=== PATIENT | female | born 1985 | race Two or more races ===

== ENCOUNTER 2021-04-01 07:23 | Observation (INO) | payer SELFPAY ==
[~2021-04-01] VITALS: Ht 162.6 cm; Wt 79.4 kg
[2021-04-01 08:02] LABS: BILIRUBIN,URINE NEGATIVE (NEG); CLARITY,URINE CLEAR; COLOR,URINE YELLOW; NITRITE,URINE NEGATIVE (NEG); PROTEIN,URINE NEGATIVE (NEG-TRACE); UROBILINOGEN,URINE 0.2 mg/dL (0.2 mg/dL)
[2021-04-01 08:13] LABS: BARBITURATES NEG (NEG); BENZODIAZEPINES NEG (NEG); CANNABINOIDS NEG (NEG); COCAINE NEG (NEG); METHADONE NEG (NEG); OPIATES NEG (NEG); PHENCYCLIDINE NEG (NEG)
[2021-04-01 08:15] LABS: BACTERIA,URINE FEW /HPF (0-FEW); RBC,URINE 0 /HPF (0-2)
[2021-04-01 08:23] LABS: AMPHETAMINE/METHAMPHETAMINE NEG (NEG)
[2021-04-01 08:24] LABS: BASO # 0.1 x10^3/uL (0.0-0.2); BASO % 1 % (0-3); EOS # 0.4 x10^3/uL (0.0-0.7); EOS % 5 % (0-3); HEMOGLOBIN 13.2 g/dL (12.0-15.5); LYMPH # 1.9 x10^3/uL (1.0-4.8); LYMPH % 22 % (24-48); MEAN CORPUSCULAR HEMOGLOBIN 28 pg (25-35); MEAN CORPUSCULAR HGB CONC 34 g/dL (31-37); MEAN CORPUSCULAR VOLUME 84 fL (79-100); MONO # 0.4 x10^3/uL (0.0-1.1); MONO % 5 % (0-9); NEUT # 5.7 x10^3/uL (1.8-7.7); NEUT % 67 % (31-73); PLATELET COUNT 267 x10^3/uL (140-400); RED BLOOD COUNT 4.64 x10^6/uL (3.50-5.40); RED CELL DISTRIBUTION WIDTH 14.2 % (11.5-14.5); WHITE BLOOD COUNT 8.5 x10^3/uL (4.0-11.0)
[2021-04-01 08:38] LABS: CREATININE 0.7 mg/dL (0.6-1.0); GFR 94.7; POTASSIUM 3.7 mmol/L (3.5-5.1)
[2021-04-01 08:44] LABS: ALBUMIN 3.5 g/dL (3.4-5.0); ALBUMIN/GLOBULIN RATIO 0.9 (1.0-1.7); TOTAL BILIRUBIN 0.2 mg/dL (0.2-1.0); TOTAL PROTEIN 7.3 g/dL (6.4-8.2)
[2021-04-01] MEDS ORDERED: ZIPRASIDONE IM 20 MG VIAL. IM ONE ×2 (09:19→09:30)
--- NOTE | 2021-04-01 10:18 | RAD ---
EXAM: Right hand, 3 views. HISTORY: Swelling. COMPARISON: None. FINDINGS: 3 views of the right hand are obtained. There is no fracture, dislocation or subluxation. T here is no suspicious retained foreign body. There is no soft tissue gas. IMPRESSION: No acute osseous finding. Electronically signed by: Ilene Rg MD (04/01/2021 10:16 AM) [id number]
--- NOTE | 2021-04-01 10:36 | RAD ---
CT HEAD WITHOUT CONTRAST 04/01/2021 9:57 AM Indication: Confusion. Comparison: None Procedure: Multidetector CT imaging of the head was performed without the administration of contrast. Findings: There is no evidence of acute intracranial hemorrhage. There is no evidence of acute territ orial infarction. Please note that CT is limited for evaluation of acute ischemia. No mass effect or midline shift is identified . The ventricles and basilar cisterns have an appropriate appearance. No abnormal extra-axial fluid collections are seen. No acute osseous changes are identified. Impression: No evidence of acute intracranial abnormality CT DOSING PQRS STATEMENT: One or more of the following individualized dose reduction techniques were utilized for this examinat ion: 1. Automated exposure control 2. Adjustment of the mA and/or kV according to patient size 3. Use of iterative reconstruction technique Electronically signed by: Rayo Baig MD (04/01/2021 10:33 AM) [id number]
--- NOTE | 2021-04-01 10:42 | PHYS DOC ---
Past Medical History Past Surgical History: No Surgical History Smoking Status: Never Smoker Alcohol Use: Occasionally General Adult EDM: Chief Complaint: HIP PAIN HPI: HPI: 35-year-old female past medical history of schizophrenia, presents the ED brought in by EMS, for left hip pain, that has been present for the past 8 years after patient had an ectopic . Patient reports to me she has left- sided abdominal pain, "only when you press really hard." Then 5 minutes later reports abdominal pain is gone. Pt is very disorganized and admits to not taking her medications, has not been sleeping much lately. Hallucinations, suicidal or homicidal ideations. Denies any drug or alcohol use. No history of trauma or physical assault. Review of Systems: Review of Systems: Constitutional: Denies fever or chills. [] Eyes: Denies change in visual acuity. [] HENT: Denies nasal congestion or sore throat. [] Respiratory: Denies cough or shortness of breath. [] Cardiovascular: Denies chest pain or edema. [] GI: Denies nausea, vomiting, bloody stools or diarrhea. [] : Denies dysuria or vaginal bleeding Musculoskeletal: Denies back pain or joint pain. [] Integument: Denies rash or diaphoresis Neurologic: Denies headache, focal weakness or sensory changes. [] Endocrine: Denies polyuria or polydipsia. [] Lymphatic: Denies swollen glands. [] Psychiatric: Denies depression or anxiety. [] Heart Score: C/O Chest Pain: No Risk Factors: Risk Factors: DM, Current or recent (<one month) smoker, HTN, HLP, family history of CAD, obesity. Risk Scores: Score 0 - 3: 2.5% MACE over next 6 weeks - Discharge Home Score 4 - 6: 20.3% MACE over next 6 weeks - Admit for Clinical Observation Score 7 - 10: 72.7% MACE over next 6 weeks - Early Invasive Strategies Current Medications: Current Medications Medications (Trade) Dose Ordered Sig/Marlene Start Time Stop Time Status Last Admin Dose Admin Ziprasidone (Geodon Im) 20 mg 1X ONCE 04/01/21 09:30 04/01/21 09:31 DC 04/01/21 09:25 20 MG Allergies: Allergies: Allergies Coded Allergies Type Severity Reaction Last Updated Verified No Known Drug Allergies 04/01/21 No Physical Exam: PE: Constitutional: Well developed, well nourished, no acute distress, non-toxic appearance. HENT: Normocephalic, atraumatic, Eyes: EOMI, conjunctiva normal, no discharge. Neck: Normal range of motion, supple, Cardiovascular: S1/2 present, regular rhythm Lungs & Thorax: Speaking in full sentences, bilateral equal chest rise, no t achypnea or increased work of breathing Abdomen: soft, no tenderness, no rigidity or guarding, Skin: Warm, dry, no erythema, no rash. [] Back: No tenderness, no CVA tenderness. [] Extremities: No tenderness, no cyanosis, no lower extremity edema Neurologic: Alert and oriented X 3, normal motor function, normal sensory function, no focal deficits noted. [] Psychologic: Very flat affect, very disorganized, slightly paranoid Current Patient Data: Labs: Laboratory Tests Test 04/01/21 07:31 04/01/21 07:34 04/01/21 08:15 04/01/21 08:32 Urine Collection Type Unknown Urine Color Yellow Urine Clarity Clear Urine pH 5.0 (<5.0-8.0) Urine Specific [place] 1.020 (1.000-1.030) Urine Protein Negative mg/dL (NEG-TRACE) Urine Glucose (UA) Negative mg/dL (NEG) Urine Ketones (Stick) Negative mg/dL (NEG) Urine Blood Negative (NEG) Urine Nitrite Negative (NEG) Urine Bilirubin Negative (NEG) Urine Urobilinogen Dipstick 0.2 mg/dL (0.2 mg/dL) Urine Leukocyte Esterase Negative (NEG) Urine RBC 0 /HPF (0-2) Urine WBC 1-4 /HPF (0-4) Urine Squamous Epithelial Cells Mod /LPF Urine Bacteria Few /HPF (0-FEW) Urine Mucus Marked /LPF Urine Opiates Screen Neg (NEG) Urine Methadone Screen Neg (NEG) Urine Barbiturates Neg (NEG) Urine Phencyclidine Screen Neg (NEG) Urine Amphetamine/Methamphetamine Neg (NEG) Urine Benzodiazepines Screen Neg (NEG) Urine Cocaine Screen Neg (NEG) Urine Cannabinoids Screen Neg (NEG) Urine Ethyl Alcohol Neg (NEG) POC Urine HCG, Qualitative Hcg negative (Negative) White Blood Count 8.5 x10^3/uL (4.0-11.0) Red Blood Count 4.64 x10^6/uL (3.50-5.40) Hemoglobin 13.2 g/dL (12.0-15.5) Hematocrit 39.0 % (36.0-47.0) Mean Corpuscular Volume 84 fL (79-100) Mean Corpuscular Hemoglobin 28 pg (25-35) Mean Corpuscular Hemoglobin Concent 34 g/dL (31-37) Red Cell Distribution Width 14.2 % (11.5-14.5) Platelet Count 267 x10^3/uL (140-400) Neutrophils (%) (Auto) 67 % (31-73) Lymphocytes (%) (Auto) 22 % (24-48) L Monocytes (%) (Auto) 5 % (0-9) Eosinophils (%) (Auto) 5 % (0-3) H Basophils (%) (Auto) 1 % (0-3) Neutrophils # (Auto) 5.7 x10^3/uL (1.8-7.7) Lymphocytes # (Auto) 1.9 x10^3/uL (1.0-4.8) Monocytes # (Auto) 0.4 x10^3/uL (0.0-1.1) Eosinophils # (Auto) 0.4 x10^3/uL (0.0-0.7) Basophils # (Auto) 0.1 x10^3/uL (0.0-0.2) Sodium Level 139 mmol/L (136-145) Potassium Level 3.7 mmol/L (3.5-5.1) Chloride Level 103 mmol/L (98-107) Carbon Dioxide Level 26 mmol/L (21-32) Anion Gap 10 (6-14) Blood Urea Nitrogen 16 mg/dL (7-20) Creatinine 0.7 mg/dL (0.6-1.0) Estimated GFR (Cockcroft-Gault) 94.7 BUN/Creatinine Ratio 23 (6-20) H Glucose Level 95 mg/dL (70-99) Calcium Level 9.0 mg/dL (8.5-10.1) Total Bilirubin 0.2 mg/dL (0.2-1.0) Aspartate Amino Transferase (AST) 17 U/L (15-37) Alanine Aminotransferase (ALT) 34 U/L (14-59) Alkaline Phosphatase 55 U/L (46-116) Total Protein 7.3 g/dL (6.4-8.2) Albumin 3.5 g/dL (3.4-5.0) Albumin/Globulin Ratio 0.9 (1.0-1.7) L Ethyl Alcohol Level < 10 mg/dL (0-10) Test 04/01/21 09:36 SARS-CoV-2 Antigen (Rapid) Negative (NEGATIVE) Laboratory Tests 04/01/21 08:15 Laboratory Tests 04/01/21 08:15 Vital Signs: Vital Signs Date Time Temp Pulse Resp B/P (MAP) Pulse Ox O2 Delivery O2 Flow Rate FiO2 04/01/21 09:26 98.1 112 17 172/101 (124) 94 Room Air 97.0 98.1 EKG: EKG: [] Radiology/Procedures: Radiology/Procedures: IMAGING REPORT Signed PATIENT: THUY GREENBERG ACCOUNT: [id number] : 1985 LOCATION: ER AGE: 35 SEX: F EXAM STATUS: REG ER ORD. PHYSICIAN: BRYNN CABA DO REASON: confused, schizo? PROCEDURE: CT HEAD WO CONTRAST CT HEAD WITHOUT CONTRAST 04/01/2021 9:57 AM Indication: Confusion. Comparison: None Procedure: Multidetector CT imaging of the head was performed without the administration of contrast. Findings: There is no evidence of acute intracranial hemorrhage. There is no evidence of acute territorial infarction. Please note that CT is limited for evaluation of acute ischemia. No mass effect or midline shift is identified . The ventricles and basilar cisterns have an appropriate appearance. No abnormal extra-axial fluid collections are seen. No acute osseous changes are identified. Impression: No evidence of acute intracranial abnormality CT DOSING PQRS STATEMENT: One or more of the following individualized dose reduction techniques were utilized for this examination: 1. Automated exposure control 2. Adjustment of the mA and/or kV according to patient size 3. Use of iterative reconstruction technique Electronically signed by: Rayo Camarillo MD (04/01/2021 10:33 AM) [id number] DICTATED and SIGNED BY: RAYO CAMARILLO MD DATE: 04/01/21 [id number] IMAGING REPORT Signed PATIENT: THUY GREENBERG ACCOUNT: [id number] : 1985 LOCATION: ER AGE: 35 SEX: F EXAM STATUS: REG ER ORD. PHYSICIAN: BRYNN CABA DO REASON: SWELLING AT SITE OF BLOOD DRAW PROCEDURE: HAND RIGHT 3V EXAM: Right hand, 3 views. HISTORY: Swelling. COMPARISON: None. FINDINGS: 3 views of the right hand are obtained. There is no fracture, dislocation or subluxation. There is no suspicious retained foreign body. There is no soft tissue gas. IMPRESSION: No acute osseous finding. Electronically signed by: Ilene Cheema MD (04/01/2021 10:16 AM) [id number] DICTATED and SIGNED BY: ILENE CHEEMA MD DATE: 04/01/21 [id number] 0 Course & Med Decision Making: Course & Med Decision Making Pertinent Labs and Imaging studies reviewed. (See chart for details) Concern for psychosis versus poorly controlled schizophrenia. Patient had to be placed on one-to-one and was repeatedly requiring verbal de-escalation. Patient was monitored in the hospital and was found in a dark closet in the radiology department. Patient complains of decreased sleep and agrees for medication that we will sedate her, Geodon IM given. Patient is medically cleared for inpatient psych. Declined from . Due to shift change patient has been signed out to oncoming physician Dr. Palacio for further medical evaluation and dispo. I have spoken with the patient and/or caregivers. I have explained the patient's condition, diagnosis and treatment plan based on the information available to me at this time. I have answered the patient's and/or caregivers questions and answered any concerns. The patient and/or caregivers have as good an understanding of the patient's diagnosis, condition and treatment plan as can be expected at this point. The patient has been stabilized within the capability of the emergency department. The patient will be transported for further care and management or will be moved to an observation or inpatient service. I have communicated with the staff or medical practitioner taking over this patient's care. Dragon Disclaimer: Dragon Disclaimer: This electronic medical record was generated, in whole or in part, using a voice recognition dictation system. Departure Departure Impression: Primary Impression: Psychosis Additional Impressions: Schizophrenia Agitation requiring sedation protocol Condition: STABLE Referrals: UNKNOWN PCP NAME (PCP) BRYNN CABA DO Apr 01, 2021 10:42
[2021-04-01 16:01] VITALS: BP 122/76
--- NOTE | 2021-04-01 16:16 | NUR ---
IP: Attempted to contact pt concerning covid results. Phone number provided is not in service.
[2021-04-01 23:30] VITALS: BP 115/71
--- NOTE | 2021-04-02 01:46 | EKG ---
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
[2021-04-02 02:15] VITALS: BP 113/65
[2021-04-02] MEDS ORDERED: DEXAMETHASONE SOD PHOS 4 MG/ML VIAL PO ONE (05:15)
[2021-04-02 07:00] VITALS: BP 110/64
[2021-04-02] MEDS ORDERED: ACETAMINOPHEN 325 MG TABLET. PO PRN (07:15)
[2021-04-02] MEDS ORDERED: ONDANSETRON ODT 4 MG TAB.RAPDIS. PO PRN (07:15)
[2021-04-02] MEDS ORDERED: guaiFENesin DM 200MG/20MG 10 ML SYRUP PO PRN (07:15)
[2021-04-02] MEDS ORDERED: HALOPERIDOL 2 MG TABLET. PO PRN (07:15)
--- NOTE | 2021-04-02 09:30 | PDOC ---
[facility] PROGRESS NOTE Date of Service DOS: DATE: 04/02/21 TIME: 09:22 Chief Complaint Chief Complaint Suicidal ideation Hip pain Psychosis Schizophrenia History of Present Illness History of Present Illness 04/02/2021 Patient seen and examined Chart reviewed Discussed with RN She is currently on one-to-one observation Well-appearing and in NAD Patient reports no suicidal ideation. Patient refuses referral to and would prefer referral to [facility] if necessary Patient lives at home with her who works in construction. When asked about her mood, patient reports that she is not currently sad, but would be sad if her . She reports that her is healthy and in no imminent danger. Vitals/I&O Vitals/I&O: Vital Signs Date Time Temp Pulse Resp B/P (MAP) Pulse Ox O2 Delivery O2 Flow Rate FiO2 04/02/21 07:00 98.7 87 18 110/64 (79) 97 Room Air 98.7 04/01/21 09:26 I & O 04/01/21 04/01/21 04/02/21 15:00 23:00 07:00 Intake Total 100 ml Balance 100 ml Physical Exam General: Alert, Oriented X3 Heart: Regular rate Lungs: Clear Abdomen: Normal bowel sounds Extremities: No clubbing Skin: No rashes Labs Labs: Laboratory Tests Test 04/01/21 09:36 SARS-CoV-2 RNA (JARRETT) Negative (Negative) SARS-CoV-2 Antigen (Rapid) Negative (NEGATIVE) Assessment and Plan Assessmemt and Plan Problems Medical Problems: (1) Agitation requiring sedation protocol Status: Acute (2) Psychosis Status: Acute (3) Schizophrenia Status: Acute Suicidal ideation Hip pain Psychosis Schizophrenia Agitation Plan One-to-one observation teletypesetter monitor Home meds DVT prophylaxis Full code Hope to discharge soon Full H&P dictated Comment Review of Relevant I have reviewed the following items job (where applicable) has been applied. Medications: Current Medications Medications (Trade) Dose Ordered Sig/Marlene Route PRN Reason Start Time Stop Time Status Last Admin Dose Admin Ziprasidone (Geodon Im) 20 mg 1X ONCE IM 04/01/21 09:30 04/01/21 09:31 DC 04/01/21 09:25 Justifications for Admission Other Justification ANDREE DANIELS III DO Apr 02, 2021 09:30
[2021-04-02 11:00] VITALS: BP 119/72
--- NOTE | 2021-04-02 11:39 | SSS ---
DATE OF SERVICE: 04/02/2021 ADMIT DATE: 04/01/2021 SHORT STAY SUMMARY CHIEF COMPLAINT: Hip pain. HISTORY OF PRESENT ILLNESS: The patient is a pleasant 35-year-old female with schizophrenia, who we think may have been off of her medication. She presented to the ER last night with hip pain, rated at 8/10. Apparently, this started when she had an ectopic many years ago. Her pain is now resolved. She has been admitted overnight for observation because she was psychotic in the ER. There was some concern she could be suicidal or homicidal. This morning when I am examining her, she seems to be pleasant, alert, wants to get home. PAST MEDICAL HISTORY: Schizophrenia and she states she is supposed to be on a shot of Haldol and Risperdal. ALLERGIES: None. FAMILY HISTORY: Diabetes. SOCIAL HISTORY: She does not drink, smoke or take drugs. She states she is to a gentleman named, Rosi, and he is a construction trench digger. She states she is infertile, so they have no children. MEDICATIONS: Reviewed, please refer to the MRAD. REVIEW OF SYSTEMS: GENERAL: No history of weight change, weakness or fevers. SKIN: No bruising, hair changes or rashes. EYES: No blurred, double or loss of vision. NOSE AND THROAT: No history of nosebleeds, hoarseness or sore throat. HEART: No history of palpitations, chest pain or shortness of breath on exertion. LUNGS: Denies cough, hemoptysis, wheezing or shortness of breath. GASTROINTESTINAL: Denies changes in appetite, nausea, vomiting, diarrhea or constipation. GENITOURINARY: No history of frequency, urgency, hesitancy or nocturia. NEUROLOGIC: Denies history of numbness, tingling, tremor or weakness. PSYCHIATRIC: No history of panic, anxiety or depression. ENDOCRINE: No history of heat or cold intolerance, polyuria or polydipsia. EXTREMITIES: Denies muscle weakness, joint pain, pain on walking or stiffness. PHYSICAL EXAMINATION: VITALS: Within normal limits and are stable. GENERAL: No apparent distress. Alert and oriented. HEENT: Normal cephalic atraumatic, external auditory canals are patent EYES: Extraocular muscles are intact, pupils are equally round and reactive to light and accommodation MUSCULOSKELETAL: Well developed, well nourished, good range of motion ENDOCRINE: No thyromegaly was palpated LYMPHATICS: No cervical chain or axillary nodes were noted HEMATOPOIETIC: No bruising NECK: Supple, no JVD, no thyromegaly was noted. LUNGS: Clear to auscultation in all lung dyer without rhonchi or wheezing. HEART: RRR, S1, S2 present. Peripheral pulses intact, no obvious murmurs were noted. ABDOMEN: Soft, nontender. Positive bowel sounds no organomegaly, normal bowel sounds. EXTREMITIES: Without any cyanosis, clubbing, or edema. Pedal pulses intact, Homans sign is negative. NEUROLOGIC: Normal speech, normal tone. A and O x3, moves all extremities, no obvious focal deficits. PSYCHIATRIC: She has a slightly unusual affect, but overall pleasant and smiling and seems to be alert. SKIN: No ulcerations or rashes, good skin turgor, no jaundice. VASCULAR: Good capillary refill, neurovascular bundle appears to be intact. LABORATORY DATA: White count 8, hemoglobin 13, platelets 267. Electrolytes are normal. Drug screen, negative. Urinalysis, negative. COVID testing negative. Hand x-ray, negative. CT of the head negative. ASSESSMENT AND PLAN: Resolving psychosis, hip pain, and possible suicidal ideation, although she denies that to me. She did get a dose of Ziprasidone 20 mg intramuscular x2 in the ER, that seems to have resolved a lot of her symptoms. We will try to resume her home meds. We also have her on p.r.n. Haldol. We will have the psychiatric assessment team evaluate. ALISA/YEMI DR: ARI/simon TID: [id number]
[2021-04-02] MEDS ORDERED: HALO100A3 IM (14:19)
[2021-04-02] MEDS ORDERED: RISP0.5T62 PO (14:19)
[2021-04-02 15:00] VITALS: BP 117/66
--- NOTE | 2021-04-02 15:31 | SNU/HH DC ---
DISCHARGE ORDERS DISCHARGE INFORMATION: FINAL DIAGNOSIS Problems Medical Problems: (1) Agitation requiring sedation protocol Status: Acute (2) Psychosis Status: Acute (3) Schizophrenia Status: Acute CONDITION ON DISCHARGE: Stable CODE STATUS: Code Status: Full PENITENTIARY: SNF STAY <30 DAYS: No HOSPICE: HOSPICE: No HOSPICE EVAL & TREAT: No LTAC: ADMIT TO LTAC: No POST DISCHARGE ORDERS: ACTIVITY ORDERS: No restrictions DIET AFTER DISCHARGE: Regular DISCHARGE MEDICATIONS: Home Meds Reported Medications Haloperidol Decanoate (Haloperidol Decanoate) 100 Mg/1 Ml Ampul, 400 MG IM Q4WK for psychosis, schizo for 28 Days, EACH 04/02/21 Risperidone (RISPERIDONE) 0.5 Mg Tablet, 1 TAB PO BID for schizophrenia, #60 TAB 1 Refill 04/02/21 ANDREE DANIELS III DO Apr 02, 2021 15:31
--- NOTE | 2021-04-02 15:57 | NUR ---
Barrett from [facility] call and told me they have a bed for patient today and to call them back when we have the time for patient to go there. After Dr. Berman put in discharge ordered around 4 pm, this RN called [facility] at and [facility] answered the call and told me that they don't have staff to admit the patient today and patient will have to go there tomorrow morning. 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 Berman was notified about the changed and patient will be discharge tomorrow.
[2021-04-02 19:00] VITALS: BP 133/66
[2021-04-02 23:01] VITALS: BP 116/71
[2021-04-03 07:15] VITALS: BP 125/62
--- NOTE | 2021-04-03 07:47 | NUR ---
Patient discharged this AM to [facility]. Patient picked up by her . This RN gave the the address of the facility she is to go to and instructed to go straight there, no stops. All belongings taken with patient. No IV to discontinue. This RN notified [facility] that the patient was on the way.
--- NOTE | 2021-04-03 10:23 | PDOC3 ---
[facility]-Discharge Summary Date of Admission: Date of Admission: Apr 01, 2021 Date of Discharge: Date of Discharge: Apr 03, 2021 Admission Diagnosis: Problems: (1) Psychosis (2) Schizophrenia Discharge Diagnosis: Discharge Diagnosis: Same Consults: Consults: [facility]E team Hospital Course: Hospital Course: The patient is a pleasant 35-year-old female with schizophrenia, who we think may have been off of her medication. She presented to the ER last night with hip pain, rated at 8/10. Apparently, this started when she had an ectopic many years ago. Her pain is now resolved. She has been admitted overnight for observation because she was psychotic in the ER. There was some concern she could be suicidal or homicidal. This morning when I am examining her, she seems to be pleasant, alert, wants to get home. 04/03 Patient evaluated and examined at bedside. Discharging to [facility] today. Greater than 30 minutes spent on this discharge. 18 minutes of advance care planning. Disposition: Disposition/Orders: D/C to Another Facility Activity: Activity: Resume previous activity Diet: Diet: Regular Medications: Home Meds Reported Medications Haloperidol Decanoate (Haloperidol Decanoate) 100 Mg/1 Ml Ampul, 400 MG IM Q4WK for psychosis, schizo for 28 Days, EACH 04/02/21 Risperidone (RISPERIDONE) 0.5 Mg Tablet, 1 TAB PO BID for schizophrenia, #60 TAB 1 Refill 04/02/21 Scheduled Haloperidol Decanoate (Haloperidol Decanoate), 400 MG IM Q4WK, (Reported) Risperidone (Risperidone), 1 TAB PO BID, (Reported) Justicifation of Admission Dx: Justifications for Admission: Justification of Admission Dx: Yes Altered Mental Status: Altered Mental Status DENISE CONKLIN MD Apr 03, 2021 10:23
== END 2021-04-03 07:40 ==
LOC: ER 07:23 → 6 SOUTH 22:36
PROVIDERS: ADMIT Internal Medicine; ATTEND Internal Medicine
DX: F29 Unspecified psychosis not due to a substance or known physiological condition (principal); Z20.822 Contact with and (suspected) exposure to COVID-19; F20.9 Schizophrenia, unspecified; M25.559 Pain in unspecified hip; R45.850 Homicidal ideations; R45.851 Suicidal ideations; R45.1 Restlessness and agitation; Z79.899 Other long term (current) drug therapy; Z98.890 Other specified postprocedural states
CPT/HCPCS: 36415; 70450; 73130; 80053; 80307; 81001; 81025; 85025; 87426; 93005; 96372; 99285; G0378; G0480; J3486; U0003; U0005; G0379